=== PATIENT | female | born 1955 | race Caucasian/White ===

== ENCOUNTER → 2019-08-12 | Outpatient (CLI) | payer MEDICARE ==
[~2019-08-12] MED LIST: ACIP20TA PO; ALEV220T26 PO; ASPI81TA85 PO; COUM1TAB17 PO; FURO20TA2 PO; GABA300C2 PO; HYZA100T2 PO; LASI20TA PO; LEVO150T6 PO; LYRI75CA PO; METF1000 PO; METO50TA2 PO; MULTTAB4 PO; POTA10TA7 PO; VOLT1GEL2 TD
--- NOTE | 2019-08-13 12:45 | REP ---
BILATERAL BREAST MRI STUDY WITHOUT AND WITH IV GADOLINIUM: HISTORY: This reading of outside films. Second opinion requested. Bilateral breast MRI study dated July 19, 2019. Microcalcifications are identified mammographically in the posterior aspect of the left breast. Comparison mammography is reviewed from June 12, 2019 and the December 22, 2016. FINDINGS: Bilateral breast MRI images from outside facility are reviewed. The left breast is unremarkable. There is some inhomogeneity of fat saturation in the study. In the right breast just lateral to the plane of the nipple, middle to posterior third, there is a 5 mm enhancing nodule showing some T2 hyperintensity on precontrast imaging. This has sharply circumscribed margins as described in the original report. No other abnormalities seen in the right breast. On review of the patient's comparison mammography, I believe there is a corresponding well-circumscribed mammographically visible nodule which is unchanged from the 2017 prior study and felt to be benign most compatible with a fibroadenoma. IMPRESSION: BIRADS category 2 benign findings. Small fibroadenoma right breast stable mammographically since 2017. No abnormality noted in the left breast. Electronically Signed by Juan Manuel Thomas MD 08/13/2019 07:58 P
--- NOTE | 2019-08-13 18:19 | REP ---
Digital screening bilateral mammography: Outside film interpretation. History: Screening mammography dated June 12, 2019 from [facility] is presented for second opinion. Comparison study is available from a December 22, 2016 and October 01, 2012. Calcifications are described posteriorly in the original report of the left breast on the MLO view. Findings: There is a grouping of calcifications overlying the pectoralis muscle on the MLO view of the left breast. This is not seen on the most recent prior study from December 2016 however it is felt to be visible in retrospect on the October 01, 2012 prior study and is unchanged. These are felt to be benign. Scattered fibroglandular elements are noted bilaterally. There is a stable well-circumscribed 4 mm nodule in the right breast upper outer quadrant on tomography unchanged from the 2017 prior study. A pacemaker power plant overlies the left axillary soft tissues. Impression: BIRADS category II benign findings. Repeat screening mammography recommended 1 year. BIRADS 2: BI-RADS/ACR category 2 mammogram. Benign Findings. Electronically Signed by Juan Manuel Thomas MD 08/13/2019 08:02 P
== END ==
LOC: M RAD 17:10
PROVIDERS: ATTEND Surgery
DX: D24.1 Benign neoplasm of right breast (principal); Z95.0 Presence of cardiac pacemaker; R92.1 Mammographic calcification found on diagnostic imaging of breast

== ENCOUNTER → 2019-08-12 | Outpatient (CLI) | payer MEDICARE ==
--- NOTE | 2019-08-12 17:59 | REP ---
Digital diagnostic unilateral left breast mammography with CAD: History: Posterior calcifications in the left breast on screening study. Comparison is made with prior mammography from June 20, 2019, June 12, 2019, December 22, 2016, and October 01, 2012. Mammographic findings: CC, true mediolateral, MLO, and laterally exaggerated CC views of the left breast were obtained. Only the medial lateral oblique view demonstrates a grouping of coarse calcifications posteriorly overlying the pectoralis muscle border on the left beneath a pace maker power plant. These calcifications are not seen on the orthogonal views. The breast parenchyma is predominately fat replaced otherwise. No mammographically suspicious abnormality is seen apart from these calcifications. Review of the 2012 prior mammography in the MLO projection of the left breast demonstrates these calcifications in retrospect overlying the pectoralis muscle near a skin marker. These are unchanged in the intervening 7 years and are felt to be benign. Impression: BIRADS category II benign findings. Stable grouping of coarse calcifications overlying the pectoralis muscle in the left breast unchanged from October 01, 2012 prior mammography. Repeat screening mammography recommended bilaterally in 1 year. BIRADS 2: BI-RADS/ACR category 2 mammogram. Benign Findings. This mammogram was interpreted with the aid of an FDA-approved computer-aided detection system. The patient states she had a clinical breast exam in August 2019 The patient letter being requested is m1. This patient's estimated Tyrer-Cuzick lifetime risk assessment for the breast cancer is 6.4 %.
== END ==
LOC: M WHC 14:11
PROVIDERS: ATTEND Surgery
DX: R92.1 Mammographic calcification found on diagnostic imaging of breast (principal)

== ENCOUNTER → 2019-08-12 | Outpatient (CLI) | payer MEDICARE | LOC: M PLALAB 15:23 | PROVIDERS: ATTEND Surgery | DX: Z80.3 Family history of malignant neoplasm of breast (principal); Z80.0 Family history of malignant neoplasm of digestive organs; Z80.49 Family history of malignant neoplasm of other genital organs ==

== ENCOUNTER → 2023-07-26 | Outpatient (CLI) | payer OTHER ==
[~2023-07-26] MED LIST changes: +FAMO40TA3 PO; +LOSA50TA5 PO; +ROSU10TA6 PO; +SEMA0.257 SQ; +SERT50TA29 PO; +SOTA120T PO; +XARE20TA PO
== END ==
LOC: M ONCR 08:25
PROVIDERS: ATTEND General Practice
DX: C50.411 Malignant neoplasm of upper-outer quadrant of right female breast (principal); Z71.2 Person consulting for explanation of examination or test findings; Z80.1 Family history of malignant neoplasm of trachea, bronchus and lung; Z88.1 Allergy status to other antibiotic agents; Z79.1 Long term (current) use of non-steroidal anti-inflammatories (NSAID); Z79.84 Long term (current) use of oral hypoglycemic drugs; Z79.85 Long-term (current) use of injectable non-insulin antidiabetic drugs; Z79.899 Other long term (current) drug therapy; Z98.890 Other specified postprocedural states

== ENCOUNTER → 2023-08-31 | Outpatient (RCR) | payer OTHER | LOC: M ONCR 08-03 10:11 | PROVIDERS: ATTEND General Practice | DX: Z51.0 Encounter for antineoplastic radiation therapy (principal); C50.411 Malignant neoplasm of upper-outer quadrant of right female breast ==

== ENCOUNTER 2023-09-08 08:18 | Outpatient (RCR) | payer OTHER ==
[~2023-09-08 08:18] MED LIST changes: +TRIA1CR80 TOP
== END 2023-10-01 ==
LOC: M ONCR 08:18
PROVIDERS: ATTEND General Practice
DX: Z51.0 Encounter for antineoplastic radiation therapy (principal); C50.411 Malignant neoplasm of upper-outer quadrant of right female breast

== ENCOUNTER → 2024-03-13 | Outpatient (CLI) | payer OTHER ==
[~2024-03-13] MED LIST changes: -ROSU10TA6 PO; +ROSU10TA61 PO
== END ==
LOC: M ONCR 08:18
PROVIDERS: ATTEND General Practice
DX: C50.411 Malignant neoplasm of upper-outer quadrant of right female breast (principal); N64.89 Other specified disorders of breast; Z98.890 Other specified postprocedural states; Z79.1 Long term (current) use of non-steroidal anti-inflammatories (NSAID); Z79.01 Long term (current) use of anticoagulants; Z79.811 Long term (current) use of aromatase inhibitors; Z79.84 Long term (current) use of oral hypoglycemic drugs; Z79.85 Long-term (current) use of injectable non-insulin antidiabetic drugs; Z79.899 Other long term (current) drug therapy; Z88.1 Allergy status to other antibiotic agents; Z92.3 Personal history of irradiation

== ENCOUNTER → 2024-09-10 | Outpatient (CLI) | payer OTHER | LOC: M ONCR 08:03 | PROVIDERS: ATTEND General Practice | DX: Z08 Encounter for follow-up examination after completed treatment for malignant neoplasm (principal); Z85.3 Personal history of malignant neoplasm of breast; I89.0 Lymphedema, not elsewhere classified; Z17.0 Estrogen receptor positive status [ER+]; Z17.21 Progesterone receptor positive status; Z17.32 Human epidermal growth factor receptor 2 negative status; Z98.890 Other specified postprocedural states; Z92.3 Personal history of irradiation; Z79.811 Long term (current) use of aromatase inhibitors; Z88.1 Allergy status to other antibiotic agents; Z79.85 Long-term (current) use of injectable non-insulin antidiabetic drugs; Z79.01 Long term (current) use of anticoagulants; Z79.899 Other long term (current) drug therapy; Z79.1 Long term (current) use of non-steroidal anti-inflammatories (NSAID) ==

== ENCOUNTER 2024-09-27 10:01 | Outpatient (RCR) | payer OTHER | END 2024-09-30 | LOC: M PT 10:01 | PROVIDERS: ATTEND General Practice | DX: I97.2 Postmastectomy lymphedema syndrome (principal) ==